=== PATIENT | male | born 1955 | race Caucasian/White ===

== ENCOUNTER 2017-10-03 06:29 | Emergency (ER) | payer BC ==
[~2017-10-03] VITALS: Ht 185.4 cm; Wt 171.8 kg
[~2017-10-03 06:29] MED LIST: ALLEGRA30 MG PO; AMBIEN 10MG10 MG PO; AMLOPIDINE; ANTIVERT 25MG25 MG PO; ASPI325T6 PO; ASPIRIN 32325 MG/TAB PO; ASPIRIN E.C. 8181 MG PO; ATACAND PO; FLOMAX 0.40.4 MG/CAP PO; HCTZ12.5TAB PO; LEVOTHYROXINE PO; LORTAB 5/500 501 TAB PO; MILK OF MA400 MG/5 M PO; MIRAPEX; MIRAPEX0.25 MG PO; NAPROSYN 2250 MG/TAB PO; NORCO 325 MG-101 TAB PO; NORCO 325 MG-7.1 TAB PO; NORVASC 5MG5 MG/TAB PO; PAXIL 20MG20 MG PO; PRILOSEC 20MG20 MG PO; PRINIVIL20 MG PO; ROXICODONE 55 MG/TAB PO; SENOKOT8.6 MG PO; SINGULAIR; SINGULAIR 110 MG/TAB PO; SYNTHROID 0.10.15 MG PO; TYLENOL 500MG500 MG PO; ULTRAM 50MG TAB50 MG PO; XARELTO15 MG PO; XARELTO20 MG PO; ZOFRAN ODT4 MG PO
[2017-10-03 06:34] VITALS: TEMP 99
[2017-10-03 08:39] VITALS: BP 167/110; PULSE 72
== END 2017-10-03 08:39 | disposition home or self-care (01) ==
LOC: COL.ER 06:29
DX: S09.90XA Unspecified injury of head, initial encounter (principal); S01.511A Laceration without foreign body of lip, initial encounter; S01.111A Laceration without foreign body of right eyelid and periocular area, initial encounter; Z88.2 Allergy status to sulfonamides; W06.XXXA Fall from bed, initial encounter; Y92.009 Unspecified place in unspecified non-institutional (private) residence as the place of occurrence of the external cause

== ENCOUNTER 2017-10-13 15:02 | Emergency (ER) | payer BC ==
[2017-10-13 15:04] VITALS: BP 132/83; PULSE 92; TEMP 97.6
== END 2017-10-13 15:15 | disposition home or self-care (01) ==
LOC: COL.ER 15:02
DX: Z48.02 Encounter for removal of sutures (principal); Z79.82 Long term (current) use of aspirin

== ENCOUNTER → 2019-12-26 | Outpatient (CLI) | payer BC | LOC: COL.RAD 07:17 | DX: L03.032 Cellulitis of left toe (principal) | CPT/HCPCS: A9585 ==

== ENCOUNTER 2020-11-15 05:53 | Day surgery (SDC) | payer MEDICARE, OTHER ==
[~2020-11-15] VITALS: Ht 185.4 cm; Wt 167.7 kg
[2020-11-15 06:20] VITALS: BP 163/94; PULSE 100; TEMP 98.4
[2020-11-15] MEDS ORDERED: NORVASC 10MG10 MG PO (06:25)
[2020-11-15] MEDS ORDERED: MIRAPEX0.5 MG PO (06:26)
[2020-11-15] MEDS ORDERED: HCTZ12.5TAB PO (06:26)
[2020-11-15] MEDS ORDERED: TIROSINT150 MC1 PO (06:27)
[2020-11-15] MEDS ORDERED: PRINIVIL20 MG PO (06:28)
[2020-11-15] MEDS ORDERED: ULTRAM 50MG TAB50 MG PO (06:28)
[2020-11-15] MEDS ORDERED: ALLEGRA 180MG180 MG PO (06:33)
[2020-11-15] MEDS ORDERED: AMBIEN 10MG10 MG PO (06:34)
[2020-11-15] MEDS ORDERED: SINGULAIR 110 MG/TAB PO (06:34)
[2020-11-15] MEDS ORDERED: ASPIRIN 81M81 MG/TA2 PO (06:35)
[2020-11-15] MEDS ORDERED: COUMADIN 5MG5 MG/TAB PO (06:36)
[2020-11-15] MEDS ORDERED: LOVENOX 3030 MG/0.3 SQ (06:37)
[2020-11-15 08:16] VITALS: BP 113/87; PULSE 86
--- NOTE | 2020-11-15 08:16 | NUR ---
Patient returns to room 7 per cart from surgery and is awake and alert. Temp 97.4 and sats 96% on room air. Left foot dressing clean and dry with post op shoe in place. Siderails up x2 and call light in reach. IV fluids infusing Spouse in room. Given applejuice to drink.
[2020-11-15 08:31] VITALS: BP 121/83; PULSE 79
--- NOTE | 2020-11-15 08:31 | NUR ---
Drinking apple juice and denies pain or nausea.
[2020-11-15] MEDS ORDERED: NORCO 325 MG-51 TAB PO (08:33)
[2020-11-15 08:46] VITALS: BP 138/78; PULSE 77
--- NOTE | 2020-11-15 08:46 | NUR ---
Eating muffin and continues to deny pain or nausea.
--- NOTE | 2020-11-15 09:00 | NUR ---
Assisted up to the bathroom and gait is steady. Uses walker and post op shoe in place. Bulky dressing remains dry on the left great toe area.
--- NOTE | 2020-11-15 09:25 | NUR ---
Dismissal instructions given and voices understanding of these. Provided script for [place] and provided follow up appointment date and time.
--- NOTE | 2020-11-15 09:28 | NUR ---
Patient dismissed to home driven by spouse and taken to the front door per wheelchair and assisted into vehicle. Dismissal instructions in hand.
== END 2020-11-15 09:28 | disposition home or self-care (01) ==
LOC: SDCO 05:53
DX: L97.428 Non-pressure chronic ulcer of left heel and midfoot with other specified severity (principal); D18.01 Hemangioma of skin and subcutaneous tissue; L60.0 Ingrowing nail; J45.909 Unspecified asthma, uncomplicated; I10 Essential (primary) hypertension; G47.33 Obstructive sleep apnea (adult) (pediatric); E07.9 Disorder of thyroid, unspecified; K21.9 Gastro-esophageal reflux disease without esophagitis; Z20.822 Contact with and (suspected) exposure to COVID-19; N40.0 Benign prostatic hyperplasia without lower urinary tract symptoms; K22.70 Barrett's esophagus without dysplasia; Z79.82 Long term (current) use of aspirin; Z86.718 Personal history of other venous thrombosis and embolism; Z79.899 Other long term (current) drug therapy; Z79.01 Long term (current) use of anticoagulants
CPT/HCPCS: J0690; J2250; J2704; J2795; J3010; J7120

== ENCOUNTER 2022-04-09 12:36 | Emergency (ER) | payer MEDICARE, OTHER ==
[~2022-04-09] VITALS: Ht 185.4 cm; Wt 163.6 kg
[~2022-04-09 12:36] MED LIST changes: +ALLEGRA 180MG180 MG PO; +ASPIRIN 81M81 MG/TA2 PO; +COUMADIN 5MG5 MG/TAB PO; +LOVENOX 3030 MG/0.3 SQ; +MIRAPEX0.5 MG PO; +NORCO 325 MG-51 TAB PO; +NORVASC 10MG10 MG PO; +TIROSINT150 MC1 PO
[2022-04-09 13:39] VITALS: BP 132/77; TEMP 98.3
[2022-04-09 14:24] LABS: BASO % 0.3 % (0.0-2.0); EOS # 0.1 K/mm3 (0.0-0.7); GRAN # 3.5 K/mm3 (1.4-6.5); GRAN % 58.7 % (42.2-75.2); HEMATOCRIT 40.5 % (42.0-52.0); HEMOGLOBIN 13.3 g/dl (13.5-18.0); LYMPH # 1.6 K/mm3 (1.2-3.4); LYMPH % 26.8 % (20.0-51.0); MEAN CELL VOLUME 83 fl (80.0-100.0); MEAN CORPUSCULAR HEMOGLOBIN 27 pg (27-31); MEAN CORPUSCULAR HGB CONC 33 g/dl (33.0-37.0); MEAN PLATELET VOLUME 8.5 fl (7.4-10.4); MONO # 0.7 K/mm3 (0.1-0.6); PLATELET COUNT 213 K/mm3 (130-400); REDCELL DISTRIBUTION WIDTH-CV 14.6 % (11.5-14.5)
[2022-04-09 14:40] LABS: ALBUMIN 3.9 gm/dL (3.4-4.8); BILIRUBIN,TOTAL 0.6 mg/dL (0.2-1.2); CREATININE, serum 1.27 mg/dL (0.72-1.25); TOTAL PROTEIN 7.1 gm/dL (6.2-8.1)
[2022-04-09] MEDS ORDERED: AMOXICILLIN875 MG PO (14:49)
[2022-04-09] MEDS ORDERED: DOXYCYCLINE 10100 MG PO (14:49)
[2022-04-09 15:05] VITALS: PULSE 75
== END 2022-04-09 15:05 | disposition home or self-care (01) ==
LOC: COL.ER 12:36
PROVIDERS: Emergency Medicine
DX: L03.116 Cellulitis of left lower limb (principal); L03.115 Cellulitis of right lower limb; Z88.2 Allergy status to sulfonamides; Z98.890 Other specified postprocedural states